=== PATIENT | female | born 1960 | race Hispanic/Latino ===

== ENCOUNTER 2022-09-08 10:40 | Inpatient (IN) | payer BC ==
[~2022-09-08] VITALS: Ht 157.5 cm; Wt 55.3 kg
[2022-09-08] MEDS ORDERED: IPRATROPIUM/ALBUTEROL SULFATE 3 ML SOLUTION IH ONE (11:00)
[2022-09-08] MEDS ORDERED: SOLU-MEDROL 125MG VIAL IVP ONE (11:00)
[2022-09-08] MEDS ORDERED: BUDESONIDE 0.5 MG/2 ML INH IH ONE (11:00)
[2022-09-08 11:18] LABS: BASOPHILS % (AUTO) 0.4 % (0.0-5.0); EOSINOPHILS % (AUTO) 1.6 % (0.0-8.0); HEMATOCRIT 38.9 % (36-48); LYMPHOCYTES % (AUTO) 11.3 % (21.0-51.0); MEAN CORPUSCULAR HEMOGLOBIN 30.5 pg (27.0-33.0); MEAN CORPUSCULAR HGB CONC 33.7 g/dL (32.0-36.0); MEAN CORPUSCULAR VOLUME 90.7 fL (79-99); MONOCYTES % (AUTO) 7.2 % (3.0-13.0); NEUTROPHILS % (AUTO) 79.3 % (40.0-77.0); PLATELET COUNT (AUTO) 170 K/uL (130-400); RED BLOOD CELL COUNT(AUTO) 4.29 MIL/uL (4.00-5.50); RED CELL DISTRIBUTION WIDTH 13.1 % (11.0-15.5); WHITE BLOOD COUNT (AUTO) 9.6 K/uL (4.8-10.8)
[2022-09-08 11:40] LABS: B-TYPE NATRIURETIC PEPTIDE 480 pg/mL (0-100); CREATININE 0.6 mg/dL (0.5-1.5); POTASSIUM 3.9 mmol/L (3.5-5.1)
[2022-09-08 11:45] LABS: ALBUMIN 3.8 g/dL (3.5-5.0); TOTAL PROTEIN, SERUM 7.6 g/dL (6.0-8.3)
[2022-09-08] MEDS ORDERED: CEFTRIAXONE 1G VIAL IVPB ONE (13:00)
[2022-09-08] MEDS ORDERED: SOLU-MEDROL 40MG VIAL IVP SCH (13:30)
[2022-09-08] MEDS ORDERED: FUROSEMIDE 20MG VIAL IV ONE (13:30)
[2022-09-08 13:55] LABS: APPEARANCE,URINE CLEAR (CLEAR); BILIRUBIN,URINE NEGATIVE (NEGATIVE); COLOR,URINE LIGHT-YELLOW (YELLOW); GLUCOSE, URINE (UA) NEGATIVE (NEGATIVE); KETONES,URINE NEGATIVE (NEGATIVE); LEUKOCYTE ESTERASE ,URINE 250 Leu/uL (NEGATIVE); NITRATE,URINE NEGATIVE (NEGATIVE); OCCULT BLOOD,URINE NEGATIVE (NEGATIVE); PH,URINE 5.5 (5.0-8.0); PROTEIN,URINE NEGATIVE (NEGATIVE); UROBILINOGEN,URINE 0.2 mg/dL (0.2-1.0)
[2022-09-08] MEDS: SOLU-MEDROL 40MG VIAL IVP SCH ×2 (14:00→20:53)
[2022-09-08 14:10] LABS: MUCUS,URINE RARE LPF (None Seen); RBC,URINE 0-1 /HPF (0-1); WBC,URINE 0-1 /HPF (0-1)
[2022-09-08 14:19] LABS: INR 0.97 (0.85-1.15); PROTHROMBIN TIME 10.6 SEC (9.6-11.6)
[2022-09-08 14:20] LABS: PARTIAL THROMBOPLASTIN TIME 29.2 SEC (26.3-35.5)
[2022-09-08] MEDS ORDERED: SODIUM CHLORIDE 7% INHALATION 4 ML VIAL.NEB IH ONE (15:15)
[2022-09-08] MEDS ORDERED: SODIUM CHLORIDE 3% FOR INHALATION 4 ML/AMP VIAL.NEB IH ONE ×2 (18:23→23:18)
[2022-09-08] MEDS: IPRATROPIUM/ALBUTEROL SULFATE 3 ML SOLUTION IH SCH ×2 (18:28→23:23)
[2022-09-08] MEDS: FAMOTIDINE 20MG TAB PO SCH (20:53)
[2022-09-09] VITALS (10 sets, daily range): BP systolic 108–141; BP diastolic 54–73
[2022-09-09 05:25] LABS: MEAN CORPUSCULAR HEMOGLOBIN 30.7 pg (27.0-33.0); MEAN CORPUSCULAR HGB CONC 33.4 g/dL (32.0-36.0); MEAN CORPUSCULAR VOLUME 91.8 fL (79-99); RED BLOOD CELL COUNT(AUTO) 4.14 MIL/uL (4.00-5.50); RED CELL DISTRIBUTION WIDTH 13.2 % (11.0-15.5); WHITE BLOOD COUNT (AUTO) 8.6 K/uL (4.8-10.8)
[2022-09-09 05:28] LABS: CREATININE 0.9 mg/dL (0.5-1.5); POTASSIUM 3.9 mmol/L (3.5-5.1)
[2022-09-09] MEDS: IPRATROPIUM/ALBUTEROL SULFATE 3 ML SOLUTION IH SCH ×4 (06:30→23:53)
[2022-09-09] MEDS ORDERED: FUROSEMIDE 20 MG TABLET PO SCH (09:00)
[2022-09-09] MEDS: ENOXAPARIN SODIUM 40 MG/0.4 ML SYRINGE SQ SCH (09:00)
[2022-09-09] MEDS: CEFTRIAXONE 1G VIAL IVPB SCH (10:14)
[2022-09-09] MEDS: FAMOTIDINE 20MG TAB PO SCH ×2 (10:14→21:12)
[2022-09-09] MEDS ORDERED: METOPROLOL TARTRATE 25 MG TAB PO SCH (12:30)
[2022-09-09] MEDS: LOSARTAN 25 MG TABLET PO SCH (13:21)
[2022-09-09] MEDS: FUROSEMIDE 40MG VIAL IV SCH (13:22)
[2022-09-10] MEDS: FUROSEMIDE 40MG VIAL IV SCH ×3 (00:57→23:48)
[2022-09-10 04:06] VITALS: BP 115/60
[2022-09-10] MEDS ORDERED: REGADENOSON 0.4 MG/5 ML PF SYG IVP SCH (06:30)
[2022-09-10] MEDS: IPRATROPIUM/ALBUTEROL SULFATE 3 ML SOLUTION IH SCH ×4 (06:54→23:30)
[2022-09-10 08:00] VITALS: BP 135/59
[2022-09-10] MEDS ORDERED: PREDNISONE 20 MG TABLET PO SCH (09:00)
[2022-09-10] MEDS: ENOXAPARIN SODIUM 40 MG/0.4 ML SYRINGE SQ SCH (09:15)
[2022-09-10] MEDS: CEFTRIAXONE 1G VIAL IVPB SCH (09:15)
[2022-09-10] MEDS: FAMOTIDINE 20MG TAB PO SCH (09:16)
[2022-09-10] MEDS: LOSARTAN 25 MG TABLET PO SCH (09:16)
[2022-09-10] MEDS ORDERED: ACETAMINOPHEN 325 MG TAB PO PRN (09:30)
[2022-09-10] MEDS ORDERED: METOPROLOL SUCCINATE 25 MG TAB.SR.24H PO SCH (11:00)
[2022-09-10 12:00] VITALS: BP 112/71
[2022-09-10 16:00] VITALS: BP 120/64
[2022-09-10 20:00] VITALS: BP 123/70
[2022-09-11] VITALS: BP 129/74
[2022-09-11 04:00] VITALS: BP 121/68
[2022-09-11] MEDS: IPRATROPIUM/ALBUTEROL SULFATE 3 ML SOLUTION IH SCH ×4 (06:16→23:23)
[2022-09-11 08:00] VITALS: BP 137/72
[2022-09-11] MEDS: CEFTRIAXONE 1G VIAL IVPB SCH (08:54)
[2022-09-11] MEDS: SPIRONOLACTONE 25 MG TAB PO SCH (08:55)
[2022-09-11] MEDS: ENOXAPARIN SODIUM 40 MG/0.4 ML SYRINGE SQ SCH (08:55)
[2022-09-11] MEDS: LOSARTAN 25 MG TABLET PO SCH (08:55)
[2022-09-11] MEDS: METOPROLOL SUCCINATE 25 MG TAB.SR.24H PO SCH (08:55)
[2022-09-11 12:00] VITALS: BP 123/65
[2022-09-11] MEDS: FUROSEMIDE 40MG VIAL IV SCH (13:29)
[2022-09-11 16:00] VITALS: BP 133/74
[2022-09-11 20:00] VITALS: BP 123/76
[2022-09-12] VITALS: BP 125/78
[2022-09-12] MEDS: FUROSEMIDE 40MG VIAL IV SCH (00:25)
[2022-09-12 04:00] VITALS: BP 118/73
[2022-09-12 05:59] LABS: HEMATOCRIT 42.8 % (36-48); MEAN CORPUSCULAR HEMOGLOBIN 30.3 pg (27.0-33.0); MEAN CORPUSCULAR HGB CONC 32.5 g/dL (32.0-36.0); MEAN CORPUSCULAR VOLUME 93.2 fL (79-99); RED BLOOD CELL COUNT(AUTO) 4.59 MIL/uL (4.00-5.50); RED CELL DISTRIBUTION WIDTH 13.3 % (11.0-15.5); WHITE BLOOD COUNT (AUTO) 8.2 K/uL (4.8-10.8)
[2022-09-12 06:17] LABS: ALBUMIN 3.8 g/dL (3.5-5.0); CREATININE 0.8 mg/dL (0.5-1.5); POTASSIUM 3.7 mmol/L (3.5-5.1); TOTAL PROTEIN, SERUM 7.6 g/dL (6.0-8.3)
[2022-09-12] MEDS: IPRATROPIUM/ALBUTEROL SULFATE 3 ML SOLUTION IH SCH ×2 (06:26→11:10)
[2022-09-12 08:00] VITALS: BP 131/82
[2022-09-12] MEDS ORDERED: FURO40TA5 PO (08:54)
[2022-09-12] MEDS ORDERED: LOSA25TA2 PO (08:56)
[2022-09-12] MEDS ORDERED: METO25TA3 PO (08:56)
[2022-09-12] MEDS ORDERED: SPIR25TA6 PO (08:56)
[2022-09-12] MEDS: METOPROLOL SUCCINATE 25 MG TAB.SR.24H PO SCH (10:20)
[2022-09-12] MEDS: CEFTRIAXONE 1G VIAL IVPB SCH (10:20)
[2022-09-12] MEDS: LOSARTAN 25 MG TABLET PO SCH (10:20)
[2022-09-12] MEDS: SPIRONOLACTONE 25 MG TAB PO SCH (10:20)
[2022-09-12] MEDS: ENOXAPARIN SODIUM 40 MG/0.4 ML SYRINGE SQ SCH (10:21)
[2022-09-12 11:30] VITALS: BP 120/59
== END 2022-09-12 12:44 | disposition home or self-care (01) | DRG 291 ==
LOC: EDH 10:40 → EDHIP 13:20 → 3BH 23:26
PROVIDERS: ADMIT Internal Medicine; ATTEND Internal Medicine
DX: I11.0 Hypertensive heart disease with heart failure (principal); I50.21 Acute systolic (congestive) heart failure; J15.4 Pneumonia due to other streptococci; J96.01 Acute respiratory failure with hypoxia; J40 Bronchitis, not specified as acute or chronic; Z20.822 Contact with and (suspected) exposure to COVID-19; J02.0 Streptococcal pharyngitis; R79.89 Other specified abnormal findings of blood chemistry; E78.5 Hyperlipidemia, unspecified; Z79.899 Other long term (current) drug therapy; Z86.16 Personal history of COVID-19; Z87.01 Personal history of pneumonia (recurrent); Z88.1 Allergy status to other antibiotic agents
CPT/HCPCS: 36415; 71046; 78452; 80048; 80053; 81001; 82948; 83880; 84145; 84484; 85025; 85027; 85378; 85610; 85651; 85730; 86140; 87088; 87426; 87804; 87880; 93005; 93017; 93306; 93356; 94640; 94668; 94760; 96374; A9500; G0378; J0696; J1650; J1940; J2785; J2920; J2930

== ENCOUNTER 2022-12-25 19:38 | Emergency (ER) | payer BC ==
[~2022-12-25] VITALS: Ht 157.5 cm; Wt 50.3 kg
[~2022-12-25 19:38] MED LIST: FURO40TA5 PO; LATA2.5D14 OP; LOSA25TA2 PO; METO25TA3 PO; PROP15DR OP; SPIR25TA6 PO
[2022-12-25 20:05] LABS: BASOPHILS # (AUTO) 0.03 K/uL (0.00-0.20); BASOPHILS % (AUTO) 0.3 % (0.0-5.0); EOSINOPHILS # (AUTO) 0.02 K/uL (0.00-0.70); EOSINOPHILS % (AUTO) 0.2 % (0.0-8.0); HEMATOCRIT 38.7 % (36-48); IMMATURE GRANULOCYTE ABSOLUTE 0.02 K/uL (0-1); LYMPHOCYTES # (AUTO) 1.7 K/uL (1.0-4.8); MEAN CORPUSCULAR HEMOGLOBIN 31.3 pg (27.0-33.0); MEAN CORPUSCULAR HGB CONC 34.9 g/dL (32.0-36.0); MEAN CORPUSCULAR VOLUME 89.8 fL (79-99); MONOCYTES # (AUTO) 0.5 K/uL (0.1-1.0); MONOCYTES % (AUTO) 5.3 % (3.0-13.0); NEUTROPHILS # (AUTO) 7.1 K/uL (1.8-7.7); PLATELET COUNT (AUTO) 242 K/uL (130-400); RED BLOOD CELL COUNT(AUTO) 4.31 MIL/uL (4.00-5.50); WHITE BLOOD COUNT (AUTO) 9.3 K/uL (4.8-10.8)
[2022-12-25 20:12] LABS: POTASSIUM 3.6 mmol/L (3.5-5.1)
[2022-12-25 20:21] LABS: ALBUMIN 4.3 g/dL (3.5-5.0); BILIRUBIN,TOTAL 0.5 mg/dL (0.2-1.0); TOTAL PROTEIN, SERUM 8.6 g/dL (6.0-8.3)
[2022-12-25 22:21] VITALS: BP 144/62; PULSE 82; RESP 16; O2SAT 100
[2022-12-30] MEDS ORDERED: LEVO75CA5 PO (09:59)
== END 2022-12-25 23:19 | disposition home or self-care (01) ==
LOC: EDH 19:38
DX: I08.1 Rheumatic disorders of both mitral and tricuspid valves (principal); I11.0 Hypertensive heart disease with heart failure; I50.9 Heart failure, unspecified; Z79.899 Other long term (current) drug therapy; Z98.890 Other specified postprocedural states
CPT/HCPCS: 36415; 80053; 84484; 85025; 93005

== ENCOUNTER → 2023-01-13 | Outpatient (CLI) | payer BC ==
[~2023-01-13] MED LIST changes: +LEVO75CA5 PO
[2023-01-13 16:21] LABS: CREATININE 0.6 mg/dL (0.5-1.5); POTASSIUM 4.2 mmol/L (3.5-5.1)
== END | disposition home or self-care (01) ==
LOC: LAB 15:12
PROVIDERS: ATTEND Student in an Organized Health Care Education/Training Program
DX: I50.22 Chronic systolic (congestive) heart failure (principal); R07.9 Chest pain, unspecified
CPT/HCPCS: 36415; 80048

== ENCOUNTER 2023-01-27 12:31 | Emergency (ER) | payer BC ==
[~2023-01-27] VITALS: Ht 157.5 cm; Wt 49.9 kg
[~2023-01-27 12:31] MED LIST changes: +ACET-66 PO; +DICY20TA2 PO; +LOSA-417 PO; -LOSA25TA2 PO; +ONDA-104 PO; +PANT40TA54 PO
[2023-01-27 13:14] LABS: BASOPHILS # (AUTO) 0.02 K/uL (0.00-0.20); BASOPHILS % (AUTO) 0.3 % (0.0-5.0); EOSINOPHILS # (AUTO) 0.03 K/uL (0.00-0.70); EOSINOPHILS % (AUTO) 0.4 % (0.0-8.0); HEMATOCRIT 36.7 % (36-48); IMMATURE GRANULOCYTE ABSOLUTE 0.01 K/uL (0-1); LYMPHOCYTES # (AUTO) 1.4 K/uL (1.0-4.8); LYMPHOCYTES % (AUTO) 19.5 % (21.0-51.0); MEAN CORPUSCULAR HEMOGLOBIN 32.1 pg (27.0-33.0); MEAN CORPUSCULAR HGB CONC 34.6 g/dL (32.0-36.0); MEAN CORPUSCULAR VOLUME 92.7 fL (79-99); MONOCYTES # (AUTO) 0.5 K/uL (0.1-1.0); MONOCYTES % (AUTO) 6.3 % (3.0-13.0); NEUTROPHILS # (AUTO) 5.3 K/uL (1.8-7.7); NEUTROPHILS % (AUTO) 73.4 % (40.0-77.0); PLATELET COUNT (AUTO) 174 K/uL (130-400); RED BLOOD CELL COUNT(AUTO) 3.96 MIL/uL (4.00-5.50); RED CELL DISTRIBUTION WIDTH 12.6 % (11.0-15.5); WHITE BLOOD COUNT (AUTO) 7.2 K/uL (4.8-10.8)
[2023-01-27 13:22] LABS: CREATININE 0.6 mg/dL (0.5-1.5)
[2023-01-27 13:27] LABS: ALBUMIN 3.8 g/dL (3.5-5.0); BILIRUBIN,TOTAL 0.5 mg/dL (0.2-1.0); TOTAL PROTEIN, SERUM 7.5 g/dL (6.0-8.3)
[2023-01-27 15:25] LABS: APPEARANCE,URINE CLEAR (CLEAR); BILIRUBIN,URINE NEGATIVE (NEGATIVE); COLOR,URINE LIGHT-YELLOW (YELLOW); GLUCOSE, URINE (UA) NEGATIVE (NEGATIVE); KETONES,URINE NEGATIVE (NEGATIVE); LEUKOCYTE ESTERASE ,URINE NEGATIVE Leu/uL (NEGATIVE); NITRATE,URINE NEGATIVE (NEGATIVE); OCCULT BLOOD,URINE NEGATIVE (NEGATIVE); PH,URINE 7.5 (5.0-8.0); PROTEIN,URINE NEGATIVE (NEGATIVE); UROBILINOGEN,URINE 0.2 mg/dL (0.2-1.0)
[2023-01-27 15:27] LABS: ADD UA MICROSCOPIC NO
[2023-01-27] MEDS ORDERED: ONDANSETRON 4MG INJ ONE (21:02)
[2023-01-28 03:35] VITALS: BP 114/57; PULSE 66; RESP 18; O2SAT 97
== END 2023-01-28 03:37 | disposition short-term general hospital (02) ==
LOC: EDH 12:31
DX: R55 Syncope and collapse (principal); R56.9 Unspecified convulsions; I11.0 Hypertensive heart disease with heart failure; I50.9 Heart failure, unspecified; F41.9 Anxiety disorder, unspecified; Z88.1 Allergy status to other antibiotic agents
CPT/HCPCS: 99285; 96374; 70450; 71045; 84484; 80053; 83880; 85025; 81003; 36415; 93005; J2405

== ENCOUNTER 2023-02-17 15:01 | Emergency (ER) | payer BC ==
[~2023-02-17] VITALS: Ht 157.5 cm; Wt 49.4 kg
[2023-02-17 15:30] LABS: BASOPHILS # (AUTO) 0.02 K/uL (0.00-0.20); BASOPHILS % (AUTO) 0.3 % (0.0-5.0); EOSINOPHILS # (AUTO) 0.09 K/uL (0.00-0.70); EOSINOPHILS % (AUTO) 1.4 % (0.0-8.0); HEMATOCRIT 33.9 % (36-48); IMMATURE GRANULOCYTE ABSOLUTE 0.02 K/uL (0-1); LYMPHOCYTES # (AUTO) 1.9 K/uL (1.0-4.8); LYMPHOCYTES % (AUTO) 29.1 % (21.0-51.0); MEAN CORPUSCULAR HEMOGLOBIN 31.5 pg (27.0-33.0); MEAN CORPUSCULAR HGB CONC 34.2 g/dL (32.0-36.0); MEAN CORPUSCULAR VOLUME 92.1 fL (79-99); MONOCYTES # (AUTO) 0.4 K/uL (0.1-1.0); MONOCYTES % (AUTO) 6.9 % (3.0-13.0); PLATELET COUNT (AUTO) 213 K/uL (130-400); RED BLOOD CELL COUNT(AUTO) 3.68 MIL/uL (4.00-5.50); RED CELL DISTRIBUTION WIDTH 12.6 % (11.0-15.5); WHITE BLOOD COUNT (AUTO) 6.4 K/uL (4.8-10.8)
[2023-02-17] MEDS ORDERED: METOCLOPRAMIDE 10 MG/2 ML VIAL IVP ONE (15:30)
[2023-02-17] MEDS ORDERED: FAMOTIDINE 20MG VIAL IV ONE (15:30)
[2023-02-17] MEDS ORDERED: LACTATED RINGERS 1000ML 1,000 ML IV ONE (15:30)
[2023-02-17] MEDS ORDERED: KETOROLAC 30MG VIAL (30MG/ML) IVP ONE (15:30)
[2023-02-17] MEDS ORDERED: KETOROLAC 15MG/ML VIAL (15MG/ML) ONE (15:33)
[2023-02-17 15:41] LABS: CREATININE 0.6 mg/dL (0.5-1.5); POTASSIUM 3.1 mmol/L (3.5-5.1)
[2023-02-17 15:45] LABS: ALBUMIN 3.6 g/dL (3.5-5.0); BILIRUBIN,TOTAL 0.5 mg/dL (0.2-1.0); MAGNESIUM 1.6 mg/dL (1.80-2.40); TOTAL PROTEIN, SERUM 6.9 g/dL (6.0-8.3)
[2023-02-17] MEDS ORDERED: IOHEXOL 350 MG/ML 100ML INFUS..BTL IV ONE (16:07)
[2023-02-17 16:22] LABS: APPEARANCE,URINE CLEAR (CLEAR); BILIRUBIN,URINE NEGATIVE (NEGATIVE); COLOR,URINE COLORLESS (YELLOW); GLUCOSE, URINE (UA) NEGATIVE (NEGATIVE); KETONES,URINE 5 mg/dL (NEGATIVE); LEUKOCYTE ESTERASE ,URINE NEGATIVE Leu/uL (NEGATIVE); NITRATE,URINE NEGATIVE (NEGATIVE); OCCULT BLOOD,URINE NEGATIVE (NEGATIVE); PH,URINE 7.5 (5.0-8.0); PROTEIN,URINE NEGATIVE (NEGATIVE); UROBILINOGEN,URINE 0.2 mg/dL (0.2-1.0)
[2023-02-17 16:23] LABS: ADD UA MICROSCOPIC YES
[2023-02-17 16:24] LABS: RBC,URINE 0-1 /HPF (0-1); SQUAMOUS EPITHELIAL CELL,UR RARE /HPF (0-2); WBC,URINE 0-1 /HPF (0-1)
[2023-02-17] MEDS ORDERED: POTASSIUM BICARB/CIT AC 25 MEQ TABLET.EFF PO ONE (17:00)
[2023-02-17] MEDS ORDERED: ONDA4TAB10 PO (17:39)
[2023-02-17 17:41] VITALS: BP 126/72; PULSE 74; RESP 14; O2SAT 98
== END 2023-02-17 17:48 | disposition home or self-care (01) ==
LOC: EDH 15:01
DX: R10.30 Lower abdominal pain, unspecified (principal); E87.6 Hypokalemia; Z79.899 Other long term (current) drug therapy; Z88.1 Allergy status to other antibiotic agents
CPT/HCPCS: 99284; 74178; 96374; 71045; 96375; 96361; 83735; 84484; 80053; 83690; 85025; 81001; 36415; 93005; J7120; J3490; J2765; J1885; Q9967

== ENCOUNTER 2023-03-07 07:37 | Emergency (ER) | payer BC ==
[~2023-03-07] VITALS: Ht 160 cm; Wt 61.2 kg
[~2023-03-07 07:37] MED LIST changes: +ONDA4TAB10 PO
[2023-03-07] MEDS ORDERED: ACETAMINOPHEN 325 MG TAB ONE (08:01)
[2023-03-07] MEDS ORDERED: LORAZEPAM 2 MG/ML 1 ML VIAL ONE (08:02)
[2023-03-07 08:04] LABS: BASOPHILS # (AUTO) 0.02 K/uL (0.00-0.20); BASOPHILS % (AUTO) 0.3 % (0.0-5.0); EOSINOPHILS # (AUTO) 0.06 K/uL (0.00-0.70); EOSINOPHILS % (AUTO) 0.9 % (0.0-8.0); HEMATOCRIT 39.2 % (36-48); IMMATURE GRANULOCYTE ABSOLUTE 0.03 K/uL (0-1); LYMPHOCYTES # (AUTO) 1.7 K/uL (1.0-4.8); LYMPHOCYTES % (AUTO) 25.1 % (21.0-51.0); MEAN CORPUSCULAR HEMOGLOBIN 31.6 pg (27.0-33.0); MEAN CORPUSCULAR HGB CONC 33.9 g/dL (32.0-36.0); MEAN CORPUSCULAR VOLUME 93.1 fL (79-99); MONOCYTES # (AUTO) 0.4 K/uL (0.1-1.0); MONOCYTES % (AUTO) 5.9 % (3.0-13.0); NEUTROPHILS # (AUTO) 4.6 K/uL (1.8-7.7); NEUTROPHILS % (AUTO) 67.4 % (40.0-77.0); PLATELET COUNT (AUTO) 159 K/uL (130-400); RED BLOOD CELL COUNT(AUTO) 4.21 MIL/uL (4.00-5.50); WHITE BLOOD COUNT (AUTO) 6.8 K/uL (4.8-10.8)
[2023-03-07 08:30] LABS: ALBUMIN 3.9 g/dL (3.5-5.0); BILIRUBIN,TOTAL 0.6 mg/dL (0.2-1.0); CREATININE 0.7 mg/dL (0.5-1.5); POTASSIUM 3.1 mmol/L (3.5-5.1); TOTAL PROTEIN, SERUM 7.3 g/dL (6.0-8.3)
[2023-03-07] MEDS ORDERED: ACETAMINOPHEN 325 MG TAB PO ONE (08:30)
[2023-03-07] MEDS ORDERED: LORAZEPAM 2 MG/ML 1 ML VIAL IVP ONE (08:30)
[2023-03-07 09:15] LABS: APPEARANCE,URINE CLEAR (CLEAR); BILIRUBIN,URINE NEGATIVE (NEGATIVE); COLOR,URINE COLORLESS (YELLOW); GLUCOSE, URINE (UA) NEGATIVE (NEGATIVE); KETONES,URINE 10 mg/dL (NEGATIVE); LEUKOCYTE ESTERASE ,URINE NEGATIVE Leu/uL (NEGATIVE); NITRATE,URINE NEGATIVE (NEGATIVE); OCCULT BLOOD,URINE NEGATIVE (NEGATIVE); PROTEIN,URINE NEGATIVE (NEGATIVE); UROBILINOGEN,URINE 0.2 mg/dL (0.2-1.0)
[2023-03-07 09:16] LABS: ADD UA MICROSCOPIC YES
[2023-03-07 09:17] LABS: RBC,URINE 0-1 /HPF (0-1); SQUAMOUS EPITHELIAL CELL,UR RARE /HPF (0-2)
[2023-03-07] MEDS ORDERED: KCL 20 MEQ ERTAB PO ONE ×2 (09:50→10:00)
[2023-03-07 11:05] VITALS: BP 125/78; PULSE 84; RESP 18; O2SAT 98
== END 2023-03-07 11:01 | disposition home or self-care (01) ==
LOC: EDH 07:37
DX: R56.9 Unspecified convulsions (principal); Z79.899 Other long term (current) drug therapy; Z88.1 Allergy status to other antibiotic agents; Z95.810 Presence of automatic (implantable) cardiac defibrillator
CPT/HCPCS: 99284; 96374; 80053; 85025; 81001; 36415; 93005; J2060